=== PATIENT | female | born 1965 | race Caucasian/White ===

== ENCOUNTER 2022-02-07 16:07 | Emergency (ER) | payer OTHER, SELFPAY ==
[2022-02-07 16:09] VITALS: BP 127/96; PULSE 112; RESP 14; TEMP 38.1; O2SAT 99; BMI 32.7
--- NOTE | 2022-02-07 16:25 | CT_ITS ---
STUDY: CT ABDOMEN AND PELVIS WITH CONTRAST REASON FOR EXAM: Female, 56 years old. upper abd pain RADIATION DOSAGE (If Supplied By Facility): CTDIvol = ( 16.08 ) mGy, DLP = ( 1066.45 ) mGycm TECHNIQUE: Transaxial images were obtained from the dome of the diaphragm to the symphysis pubis without oral contrast. IV 100mL Isovue-300 was administered. Sagittal and coronal images were reconstructed. Individualized dose optimization techniques were used for this CT. COMPARISON: None. FINDINGS: The visualized lung bases are unremarkable. The visualized portions of the heart are within normal limits. There is decreased attenuation of the liver consistent with steatosis. There are surgical clips in the gallbladder fossa consistent with a prior cholecystectomy. Normal spleen. Normal pancreas. Normal bilateral adrenal glands. Normal right kidney. Normal left kidney. Limited evaluation of the stomach given lack of distention; relative wall thickening of the gastric fundus and proximal body could be artifactual nondistention. No perigastric stranding. Normal small intestine. Normal colon. There is non-visualization of the appendix. Normal abdominal aorta. Normal inferior vena cava. Normal retroperitoneum. Urinary bladder is not well-distended. No pericystic stranding. Normal abdominal wall. There are diffuse degenerative changes of the visualized lumbar spine. CT/Abdomen/Pelvis W IV Cont ONLY IMPRESSION: 1. No acute inflammatory process or bowel obstruction. 2. Catheter bundle proximally by wall thickening could be artifact or nondistention versus gastritis. No perigastric stranding. Electronically Signed: Slade Mendoza MD ([facility]) at 17:17 EDT ,
--- NOTE | 2022-02-07 16:26 | EDS_ITS ---
HPI HPI - GI History of Present Illness Chief Complaint: Abd Pain Detail of Chief Complaint: With nausea and vomiting. Informant: patient and family Abdominal Pain/Flank Pain Onset: Days Context: Gradual Onset Timing: Intermittent Quality: Aching Location: Epigastric Current Severity: Mild Maximum Severity: Moderate Worsened by: Nothing Relieved by: Nothing Nausea/Vomiting/Emesis GI Symptom: Positive for Nausea and Vomiting Onset: Days Severity: Mild Diarrhea/Melena/Hematochezia GI Symptom: Negative for Diarrhea, Melena or Hematochezia Associated Symptoms Associated Symptoms: Negative for Dysuria, Frequency, Hematuria or Urgency Narrative Narrative: 56-year-old female prior appendectomy, cholecystectomy and hernia repair. History of seizures for which she is on no medications and prediabetic for which she is on no medications. Also has a history of hypertension and Anxiety and depression. States that last Wednesday she was at a picnic that evening and overnight next day started having nausea vomiting and epigastric pain. She went to [place] [facility] on Wednesday had a CAT scan and labs which she states they told her was unremarkable. She made a appointment to see her primary care physician thought she was feeling better on Wednesday but then went in to see him on when she is feeling worse they started on Protonix. States she is having worse epigastric pain and again nausea and vomiting but that is improved from before. She denies any diarrhea or constipation no hematemesis. Thinks she might have dark stools. Denies any dysuria. Prior similar symptoms: No Recent Illness/Hospitalization: No PFSH PFSH Home Medications potassium chloride 20 mEq tablet,extended release 20 meq PO BID 10 days #20 tabs 02/07/22 [Rx Last Taken Unknown] Allergy/AdvReac Type Severity Reaction Status Date / Time No Known Allergies Allergy Verified 02/07/22 16:09 Social History Smoking Status: Never smoker ROS ROS ED ROS Narrative Epigastric abdominal pain. Nausea and vomiting. Review of Systems ROS Unobtainable: Denies due to encephalopathy Constitutional Constitutional ED: Reports fever(s); Denies chills Cardiovascular Cardiovascular: Denies chest pain Respiratory/Chest Respiratory/Chest: Denies cough Gastrointestinal Gastrointestinal: Reports abdominal pain, nausea and vomiting; Denies constipation or diarrhea Genitourinary Genitourinary ED: Denies dysuria or hematuria Musculoskeletal Musculoskeletal: Denies arthralgias Integumentary Denies abscess Neurologic Neurologic: Denies headache(s) Psychiatric Psychiatric: Denies anxiety Endocrine Endocrinology: Denies polydipsia Hematologic/Lymphatic Hematologic/Lymphatic: Denies easy bleeding Allergic/Immunologic Allergic/Immunologic ED: Denies mouth swelling or tongue swelling EXAM Physical Exam Narrative Exam Narrative: 57-year-old female vital signs are stable she does have a low-grade fever of 100.6. She does not look septic or toxic. H EENT exam for dry mucous membranes otherwise unremarkable. Neck nontender. Lungs are clear. Heart tachycardic rate about 112 no murmur. Abdomen soft nondistended normal bowel sounds no peritoneal signs. Mild epigastric tenderness. No right upper or right lower quadrant tenderness. No hernia or mass. No distention. Moving all 4 extremities. Back nontender. Neurologically she is awake and alert. Const Vital Signs: 02/07/22 16:09 02/07/22 18:24 02/07/22 19:45 Temperature 100.6 F H Temperature Source Temporal Pulse Rate 112 H 91 90 Respiratory Rate 14 16 23 H Blood Pressure 127/96 H 152/107 H 130/74 H Blood Pressure Mean 106 122 92 Pulse Ox 99 97 98 Oxygen Delivery Method Room Air Room Air Room Air Positive well nourished, well developed and obese; Negative for cachectic, contractures or unkempt General Appearance ED: well developed and NAD; Negative for unkempt, cachectic, contractures or pallor Nutritional Appearance: obese; Negative for cachectic HEENT Reports dry mucous membranes normocephalic and atraumatic; Negative for trauma Mouth ED: Yes dry mucous membranes Mouth: dry mucous membranes Eyes PERRL and EOMs intact bilaterally General Eye ED: Negative for pale conjunctiva or scleral icterus Neck no lymphadenopathy, supple and no JVD General: Negative for tenderness Carotids: Negative for other Lymph Lymphatic: Negative for other Resp normal respiratory effort and clear to auscultation bilaterally Effort and Inspection: Negative for respiratory distress Auscultation: Negative for rales, rhonchi or wheezes Cardio regular rhythm, S1 normal heart sound, S2 normal heart sound and no murmurs; Negative for regular rate Rate: tachycardic GI non-distended and no masses; Negative for non-tender Inspection: Negative for abdominal distention Auscultation: normoactive bowel sounds; Negative for hyperactive bowel sounds or hypoactive bowel sounds Palpation: soft and tender; Negative for guarding, rigid, hepatomegaly, splenomegaly, hernia, mass or pulsatile mass Back/Spine no CVA tenderness General Back: Negative for CVA tenderness Cervical Spine: Negative for cervical spine tenderness Thoracic Spine / Upper Back: Negative for thoracic spinal tenderness Lumbar Spine / Lower Back: Negative for lumbar spinal tenderness Extremity full ROM General Extremety ED: Negative for edema or tenderness General Extremity: Negative for edema Neuro CN's II-XII intact bilaterally and moves all extremities Sensorium / Orientation: alert, oriented to person, oriented to place and oriented to time; Negative for orientation impaired, confused, lethargic or stuporous Motor Exam: strength 5/5 throughout Psych mental status grossly normal Appearance: Negative for unkempt Attitude: No agitated Mood & Affect: Negative for depressed Skin no wounds General Skin Exam: Negative for jaundice or pallor Lesions: no lesions Rashes: no rashes Trauma: Negative for abrasion Nails: Negative for discolored MDM MDM MDM Narrative Medical decision making narrative: 56-year-old with a week long history of epigastric abdominal pain with nausea and vomiting. Questionable dark stool. CAT scan and labs are pending. She is not currently want anything for pain or nausea. Repeat exam patient is doing well. Abdomen is benign. No peritoneal signs. We went over all of her test results including family members in the room. I did do a rectal exam she has brown stool no melena. No gross blood. She does not want a thing for pain or nausea. She will be given IV Protonix due to possible gastritis and findings on the CAT scan. She also be given IV potassium due to hypokalemia from her nausea and vomiting. The [id number] did voice concerns of not having a specific diagnosis and wanted to know if emergent colonoscopy could be done. I explained to her that she did not have anything that needed an emergent colonoscopy. She can follow-up in outpatient with upper endoscopy which could also help diagnose a possible gastritis and lower endoscopy. Repeat exam patient is doing well at 7:30 PM. Describes some atypical noncardiac sounding chest discomfort and EKG and chest will be obtained. She is currently receiving the IV potassium. Patient had nondescript atypical chest discomfort chest x-ray and EKG were unremarkable. She will be observed receiving the potassium eventually discharged to home. Patient doing well at 8:44 PM. She will be discharged to home after her IV potassium is finished. Lab Data Attestation: I reviewed the patient's lab results. Lab results narrative: CBC shows a mildly elevated white count 12.3. H&H 15 and 43. Platelets 307. Electrolytes show low potassium of 2.5. Gap of 10 normal BUN and creatinine 11 and 0.8. Liver enzymes unremarkable. Amylase normal at 51 lipase normal 233. Urinalysis negative. No whites nor red cells no nitrates. Labs: Laboratory Results - last 24 hr 02/07/22 02/07/22 02/07/22 16:38 16:38 16:56 WBC 12.3 H RBC 4.92 Hgb 15.6 H Hct 43.1 MCV 87.6 MCH 31.7 MCHC 36.2 H RDW Std Deviation 39.2 RDW Coeff of Nicol[place] 12.2 Plt Count 307 MPV 9.6 Immature Gran % (Auto) 0.300 Neut % (Auto) 67.9 Lymph % (Auto) 26.1 [place] % (Auto) 5.3 Eos % (Auto) 0.2 Baso % (Auto) 0.2 Absolute Neuts (auto) 8.4 H Absolute Lymphs (auto) 3.22 Nucleated RBC % 0 Sodium 137 Potassium 2.5 L* Chloride 102 Carbon Dioxide 25.0 Anion Gap 10 BUN 11 Creatinine 0.80 Estim Creat Clear Calc 63.58 Est GFR (MDRD) Af Amer 95 Est GFR (MDRD) Non-Af 79 BUN/Creatinine Ratio 13.7 Glucose 143 H Calcium 9.1 Total Bilirubin 0.60 AST 18 ALT 27 Alkaline Phosphatase 97 Total Protein 7.2 Albumin 3.9 Globulin 3.3 Albumin/Globulin Ratio 1.2 Amylase 51 Lipase 233 Urine Color Straw Urine Clarity Clear Urine pH 6.5 Ur Specific [place] 1.005 Urine Protein Negative Urine Glucose (UA) Normal Urine Ketones 5 H Urine Occult Blood 50 H Urine Nitrite Negative Urine Bilirubin Negative Urine Urobilinogen Normal Ur Leukocyte Esterase Negative Urine RBC 0-5 SEEN Urine WBC 0 SEEN Ur Squamous Epith Cells 0-5 SEEN Ur Transition Epith Cell 0-5 SEEN Urine Bacteria 0 SEEN Urine Mucus 0 SEEN Radiography Diagnostic Testing: Clinical Impression(s) from Imaging Studies Abdomen/Pelvis CT 02/07/22 16:25 IMPRESSION: 1. No acute inflammatory process or bowel obstruction. 2. Catheter bundle proximally by wall thickening could be artifact or nondistention versus gastritis. No perigastric stranding. Electronically Signed: Slade Mendoza MD ([facility]) at 17:17 EDT , Chest X-Ray 02/07/22 19:44 IMPRESSION: There are no acute findings. Electronically Signed: Edy Crump MD at 20:02 EDT , Chest x-ray, portable, single view interpreted by myself and radiologist shows no acute abnormality. Normal cardiac silhouette mediastinum. Unremarkable chest x-ray. Rhythm Strip Rhythm Strip: Sinus Rhythm Rate: 78 Ectopy: None EKG Initial EKG: Interpretation: Sinus Rhythm and No Acute Injury Pattern Comments: Normal sinus rhythm rate of 78 no acute signs of ME or ischemia. Discharge Plan Triage Chief Complaint: Abd Pain ED Provider: Nicholas Thomas Dx/Rx/DC Orders Clinical Impression: Abdominal pain, Gastritis, Nausea & vomiting, Acute hypokalemia Instructions: ED Abdominal Pain Unkn Cause Fem, ED Gastritis (Adult), ED Hypokalemia Prescriptions: New potassium chloride 20 mEq tablet extended release 20 meq PO BID 10 Days Qty: 20 0RF Primary Care Provider: Chava Singleton Referrals: Chava Singleton MD [Primary Care Provider] - 3-5 Days Activity Restrictions/Additional Instructions: CAT scan labs are unremarkable except for possible inflammation in your stomach consistent with gastritis. Also low potassium due to your nausea and vomiting. Continue your stomach medication Protonix. Zofran as needed for nausea. K-Dur to increase your potassium. Call and follow-up with your GI doctor, Dr. Aiden Bianchi, to have a follow-up upper and lower endoscopy. The upper endoscopy would help diagnose a possible gastritis or ulcer or other causes of your epigastric abdominal pain. Disposition Disposition: Home, Self Care
[2022-02-07] MEDS: 0.9% Normal Saline 1,000 ML 1000 ML IV (16:42)
[2022-02-07 16:47] LABS: Absolute Lymphocyte Count 3.22 X10^3/uL (0.83-4.51); Absolute Neutrophil Count 8.4 X10^3/uL (2.0-7.7); Basophil# 0.03 X10^3/uL; Basophil% 0.2 % (0-1); Eosinophil# 0.03 X10^3/uL; Eosinophils% 0.2 % (0-5); Hematocrit 43.1 % (37-47); Hemoglobin 15.6 g/dL (12.0-15.0); Lymphocyte # 3.22 X10^3/ul (0.83-4.51); Lymphocyte % 26.1 % (19-41); Mean Corp Hgb Conc 36.2 g/dL (32-36); Mean Corpuscular Hgb 31.7 pg (27.0-32.0); Mean Corpuscular Volume 87.6 fL (81-99); Mean Platelet Vol. 9.6 fl (6.2-12.0); Monocyte# 0.65 X10^3/uL; Monocyte% 5.3 % (0-10); NRBC Flagged by Analyzer 0 % (0-5); Neutrophil # 8.35 X10^3/uL (2.7-7.7); Neutrophil % 67.9 % (47-70); Platelet Count 307 K/mm3 (150-450); RBC Distribution Width CV 12.2 % (11.6-14.6); RBC Distribution Width SD 39.2 fl (35.1-43.9); Red Blood Count 4.92 M/mm3 (4.2-5.4); White Blood Count 12.3 K/mm3 (4.4-11.0)
[2022-02-07 17:00] LABS: Bacteria 0 SEEN /hpf (None Seen); Mucous, Urine 0 SEEN /hpf (<or=2+); White Blood Cells 0 SEEN /hpf (0-5)
[2022-02-07 17:01] LABS: Color, Urine Straw (Yellow); Glucose, Dipstick Normal (Normal); Ketone-Dipstick 5 mg/dl (Negative); Leukocyte Esterase-Dipstick Negative /ul (Negative); Nitrite-Dipstick Negative (Negative); Occult Blood-Urine 50 /ul (Negative); Protein-Dipstick Negative (Negative); Specific Gravity, Urine 1.005 (1.002-1.030); Urine Bilirubin Dipstick Negative (Negative); Urine Clarity Clear (Clear); Urine Urobilinogen Normal (Normal); Urine pH 6.5 (5.0 - 8.0)
[2022-02-07 17:09] LABS: ALB/GLOB Ratio 1.2 RATIO (0.9-2.4); AST(SGOT) 18 U/L (15-37); Alanine Aminotransfer ALT/SGPT 27 U/L (13-56); Albumin, Serum 3.9 g/dL (3.2-5.0); Alkaline Phosphatase 97 U/L (45-117); Amylase 51 U/L (25-115); Anion Gap 10 (5-15); BUN 11 mg/dL (7-18); BUN/Creat Ratio 13.7 RATIO (10-20); Calcium,Total 9.1 mg/dL (8.5-10.1); Chloride 102 mmol/L (98-107); EST Glomerular Filtration Rate 79 mL/min (>60); Est Glom Filt Rate - Afr Amer 95 mL/min (>60); Estimated Creatinine Clearance 63.58 ml/min; Globulin 3.3 g/dL (2.2-4.2); Glucose 143 mg/dL (74-106); Lipase 233 U/L (73-393); Potassium 2.5 mmol/L (3.5-5.1); Protein, Total 7.2 g/dL (6.4-8.2); Sodium Level 137 mmol/L (136-145)
[2022-02-07 17:17] LABS: Red Blood Cells-Urine 0-5 SEEN /hpf (0-5); Squamous Epithelial Cells - UA 0-5 SEEN /hpf (5-10); Transitional Epithelial - Ur 0-5 SEEN /hpf (0-5)
[2022-02-07 18:24] VITALS: BP 152/107; PULSE 91; RESP 16; O2SAT 97
[2022-02-07] MEDS: Potassium Chloride IVPB 40 MEQ 100 MEQ IV BOLUS ×4 (18:30→21:37)
[2022-02-07] MEDS: 0.9% Normal Saline 1,000 ML 150 ML IV (18:56)
--- NOTE | 2022-02-07 19:29 | EKG12_ITS ---
Test Reason : ABD PAIN Blood Pressure : / mmHG Vent. Rate : 078 BPM Atrial Rate : 078 BPM P-R Int : 132 ms QRS Dur : 084 ms QT Int : 414 ms P-R-T Axes : 053 043 044 degrees QTc Int : 471 ms Normal sinus rhythm Nonspecific ST abnormality Abnormal ECG Confirmed by NAMITA BRITT, SEVERIANO ([id number]), primer expeditor and drier MACKENZIE VALENCIA ([id number]) on 02/10/2022 7:59:47 AM Referred By: Confirmed By:SEVERIANO BREAUX MD
--- NOTE | 2022-02-07 19:44 | RAD_ITS ---
STUDY: X-RAY CHEST REASON FOR EXAM: Female, 56 years old. CHEST PAIN cp TECHNIQUE: XR Chest 1 View COMPARISON: None FINDINGS: There is no demonstrated pleural abnormality. Normal size heart. Normal mediastinum and emperatriz. Normal visualized pulmonary arteries. Normal visualized aortic arch and descending thoracic aorta. Normal visualized thoracic spine. Normal visualized ribs, clavicles, and shoulders. There is no demonstrated abnormality of the visualized soft tissue structures of the upper abdomen. RAD/Chest 1 View (Portable) IMPRESSION: There are no acute findings. Electronically Signed: Edy Crump MD at 20:02 EDT ,
[2022-02-07 19:45] VITALS: BP 130/74; PULSE 90; RESP 23; O2SAT 98
[2022-02-07 21:38] VITALS: BP 124/90; PULSE 78; RESP 17; O2SAT 99
[2022-02-07 22:07] VITALS: BP 136/88; PULSE 88; RESP 17; O2SAT 98
== END 2022-02-07 22:48 | disposition home or self-care (01) ==
PROVIDERS: Emergency Provider Emergency Medicine; PCP Family Medicine; Visit Provider Emergency Medicine
DX: K29.70 Gastritis, unspecified, without bleeding (principal); E87.6 Hypokalemia; I10 Essential (primary) hypertension; F41.9 Anxiety disorder, unspecified; R11.2 Nausea with vomiting, unspecified; F32.A Depression, unspecified; Z90.49 Acquired absence of other specified parts of digestive tract
CPT/HCPCS: 71045; 74177; 80053; 81001; 82150; 83690; 85025; 93005; 96360; 96361; 99283; J7030; Q9967; A4216; J3490

== ENCOUNTER → 2023-10-15 | Outpatient (CLI) | payer OTHER, SELFPAY ==
--- NOTE | 2023-10-15 15:40 | BI_ITS ---
MAMMOGRAPHY - BILATERAL SCREENING REASON FOR EXAM: Female, 58 years old. Routine annual screening examination. PERTINENT HISTORY: Non-contributory. TECHNIQUE: Digital bilateral breast mazin (3D mammographic acquisition) in the CC and MLO projections. 2-D mediolateral oblique (MLO) and craniocaudad (CC) views of both breasts were obtained. CAD: Full Field Digital Mammography with Computer Added Detection was performed. COMPARISON: Comparison is made with prior outside examination dated January 09, 2014. FINDINGS: Breast Composition: The breasts are almost entirely fatty. There are no dominant masses or suspicious calcifications. No other significant abnormalities are identified. There has been no significant change since the prior study. BI/SCRN MAMM (CAD)W/MAZIN BILAT IMPRESSION: Stable bilateral screening mammogram. Yearly follow-up mammogram recommended. (A) ASSESSMENT CATEGORY: BIRADS Category 1: Negative. A letter regarding these results will be sent to the patient by the facility within 30 days. Approximately 10% of breast cancers are not detected by mammography. A normal mammogram should not delay biopsy of a clinically suspicious abnormality. [id number] Electronically Signed: Bernardo Alexandra MD at 9:56 EDT ,
== END | disposition home or self-care (01) ==
LOC: OPBI 15:38
PROVIDERS: PCP Family Medicine
DX: Z12.31 Encounter for screening mammogram for malignant neoplasm of breast (principal)
CPT/HCPCS: 77063; 77067

== ENCOUNTER → 2024-05-12 | Outpatient (CLI) | payer OTHER, SELFPAY ==
--- NOTE | 2024-05-12 11:25 | RAD_ITS ---
STUDY: X-RAY CHEST REASON FOR EXAM: Female, 59 years old. COUGH, CHILLS, BODY ACHES X 3 DAYS TECHNIQUE: PA and lateral views of the chest. COMPARISON: Comparison is made with prior study dated February 07, 2022. FINDINGS: Right upper lobe infiltrate. Radiographic follow-up recommended. There is no demonstrated pleural abnormality. Normal size heart. Normal mediastinum and emperatriz. Normal visualized pulmonary arteries. Normal visualized aortic arch and descending thoracic aorta. There are diffuse degenerative changes of the visualized thoracic spine. Normal visualized ribs, clavicles, and shoulders. There is no demonstrated abnormality of the visualized soft tissue structures of the upper abdomen. RAD/Chest PA and Lateral IMPRESSION: Right upper lobe infiltrate. Radiographic follow-up recommended. Electronically Signed: Bernardo Alexandra MD at 12:04 EST ,
== END | disposition home or self-care (01) ==
PROVIDERS: PCP Family Medicine; Referring Provider Nurse Practitioner Family; Visit Provider Nurse Practitioner Family
DX: J06.9 Acute upper respiratory infection, unspecified (principal)
CPT/HCPCS: 71046